=== PATIENT | female | born 1995 | race Two or more races ===

== ENCOUNTER 2024-08-09 15:14 | Emergency (ER) | payer MEDICAID, SELFPAY ==
[2024-08-09 15:29] VITALS: PULSE 100; RESP 18; O2SAT 99
[2024-08-09 15:40] VITALS: BP 105/71; PULSE 97; RESP 18; TEMP 36.7; O2SAT 97; BMI 20.9
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
== END 2024-08-09 18:41 | disposition home or self-care (01) ==
PROVIDERS: Emergency Provider Emergency Medicine; PCP Family Medicine
DX: T21.01XA Burn of unspecified degree of chest wall, initial encounter (principal); T31.11 Burns involving 10-19% of body surface with 10-19% third degree burns; S89.91XA Unspecified injury of right lower leg, initial encounter; S49.91XA Unspecified injury of right shoulder and upper arm, initial encounter; M54.2 Cervicalgia; V89.9XXA Person injured in unspecified vehicle accident, initial encounter
CPT/HCPCS: 72040; 73030; 73590; 99283